=== PATIENT | male | born 1980 ===

== ENCOUNTER 2020-01-15 10:25 | Inpatient (IN) | payer SELFPAY ==
[2020-01-15] VITALS (12 sets, daily range): BP systolic 104–130; BP diastolic 79–90
[~2020-01-15] VITALS: Ht 167 cm; Wt 67.8 kg
[2020-01-15 10:57] LABS: BASOPHILS % (AUTO) 0 % (0-10); EOSINOPHILS % (AUTO) 0 % (0-10); HEMATOCRIT 41 % (40-54); HEMOGLOBIN 14.2 G/DL (13.3-17.7); LYMPHOCYTES # (AUTO) 0.8 X 10^3 (1.0-4.0); LYMPHOCYTES % (AUTO) 8 % (12-44); MEAN CORPUSCULAR HEMOGLOBIN 32 PG (25-34); MEAN CORPUSCULAR HGB CONC 35 G/DL (32-36); MEAN CORPUSCULAR VOLUME 91 FL (80-99); MEAN PLATELET VOLUME 9.3 FL (7.4-10.4); MONOCYTES # (AUTO) 0.4 X 10^3 (0.0-1.0); MONOCYTES % (AUTO) 4 % (0-12); NEUTROPHILS % (AUTO) 89 % (42-75); PLATELET COUNT 350 10^3/uL (130-400); RED CELL DISTRIBUTION WIDTH 12.7 % (10.0-14.5); WHITE BLOOD COUNT 10.1 10^3/uL (4.3-11.0)
[2020-01-15 11:05] LABS: ALBUMIN 3.4 GM/DL (3.2-4.5)
[2020-01-15 11:06] LABS: CHLORIDE 94 MMOL/L (98-107); POTASSIUM 3.8 MMOL/L (3.6-5.0); SODIUM 129 MMOL/L (135-145)
[2020-01-15 11:07] LABS: CALCIUM 8.4 MG/DL (8.5-10.1)
[2020-01-15 11:08] LABS: GLUCOSE 119 MG/DL (70-105); TOTAL PROTEIN 7.1 GM/DL (6.4-8.2)
[2020-01-15 11:09] LABS: CARBON DIOXIDE 22 MMOL/L (21-32)
[2020-01-15 11:10] LABS: BILIRUBIN,TOTAL 0.8 MG/DL (0.1-1.0)
[2020-01-15 11:11] LABS: ALKALINE PHOSPHATASE 76 U/L (40-136)
[2020-01-15 11:12] LABS: CREATININE SERUM 0.88 MG/DL (0.60-1.30); GFR ESTIMATED > 60
[2020-01-15 11:13] LABS: BUN/CREATININE RATIO 14
[2020-01-15 11:15] LABS: ALANINE AMINOTRANSFERASE 43 U/L (0-55)
[2020-01-15] MEDS ORDERED: ACETAMINOPHEN 500 MG TAB (TYLENOL) PO ONE (11:15)
--- NOTE | 2020-01-15 11:15 | ED Cough/URI ---
General Chief Complaint: Respiratory Problems Stated Complaint: SOA Source: patient Exam Limitations: no limitations History of Present Illness Date Seen by Provider: Jan 15, 2020 Time Seen by Provider: 11:12 Initial Comments this non-Greenlandic speaking male presents to ER byEMS from [facility] in [place]. He reports a dry cough fever and shortness of breath getting progressively worse. Symptoms present for about 10 days. He lives in [facility], he has not been around any known ill contacts. He has been unemployed for 6 months. He does not smoke or have any pre-existing lung disease. Oxygen saturation for EMS was low 80% range on arrival.he received Solu-Medrol 125 mg IV from [facility] SinCola and a pro-air inhaler prior to being transported here by EMS Timing/Duration: getting worse Severity/Quality: moderate Associated Symptoms: cough, fever/chills, shortness of breath Allergies and Home Medications Allergies Coded Allergies: No Known Drug Allergies (Unverified , 01/15/20) Home Medications No Active Prescriptions or Reported Meds Patient Home Medication List Home Medication List Reviewed: Yes Review of Systems Review of Systems Constitutional: see HPI, fever EENTM: see HPI Respiratory: see HPI, cough, short of breath Cardiovascular: no symptoms reported Genitourinary: no symptoms reported Musculoskeletal: no symptoms reported Skin: no symptoms reported Psychiatric/Neurological: No Symptoms Reported Hematologic/Lymphatic: No Symptoms Reported Immunological/Allergic: no symptoms reported Physical Exam Vital Signs - First Documented 01/15/20 01/15/20 10:25 11:37 Temp 38.7 Pulse 112 Resp 41 B/P (MAP) 130/89 (103) Pulse Ox 93 O2 Delivery Non Rebreather O2 Flow Rate 15.00 Capillary Refill : Height: '" Weight: lbs. oz. kg; BMI Method: General Appearance: WD/WN, no apparent distress Eyes: Bilateral Eye Normal Inspection, Bilateral Eye PERRL, Bilateral Eye EOMI HEENT: PERRL/EOMI, normal ENT inspection Neck: non-tender, full range of motion Respiratory: normal breath sounds (lungs are clear but respiratory rate is 35- 40. Oxygen is 93% on a nonrebreather. Goes down to 81% on 4 L nasal cannula), no respiratory distress Cardiovascular: no murmur, tachycardia (130s) Gastrointestinal: normal bowel sounds, non tender, soft Extremities: normal range of motion, non-tender Neurologic/Psychiatric: alert, normal mood/affect, oriented x 3 Skin: normal color, warm/dry Progress/Results/Core Measures Suspected Sepsis SIRS Temperature: Pulse: Respiratory Rate: Laboratory Tests 01/15/20 10:35: White Blood Count 10.1 Blood Pressure / Mean: Laboratory Tests 01/15/20 10:35: Creatinine 0.88, Platelet Count 350, Total Bilirubin 0.8 Results/Orders Lab Results Laboratory Tests Test 01/15/20 10:35 01/15/20 10:45 01/15/20 10:46 Range/Units White Blood Count 10.1 4.3-11.0 10^3/uL Red Blood Count 4.47 4.35-5.85 10^6/uL Hemoglobin 14.2 13.3-17.7 G/DL Hematocrit 41 40-54 % Mean Corpuscular Volume 91 80-99 FL Mean Corpuscular Hemoglobin 32 25-34 PG Mean Corpuscular Hemoglobin Concent 35 32-36 G/DL Red Cell Distribution Width 12.7 10.0-14.5 % Platelet Count 350 130-400 10^3/uL Mean Platelet Volume 9.3 7.4-10.4 FL Neutrophils (%) (Auto) 89 H 42-75 % Lymphocytes (%) (Auto) 8 L 12-44 % Monocytes (%) (Auto) 4 0-12 % Eosinophils (%) (Auto) 0 0-10 % Basophils (%) (Auto) 0 0-10 % Neutrophils # (Auto) 9.0 H 1.8-7.8 X 10^3 Lymphocytes # (Auto) 0.8 L 1.0-4.0 X 10^3 Monocytes # (Auto) 0.4 0.0-1.0 X 10^3 Eosinophils # (Auto) 0.0 0.0-0.3 10^3/uL Basophils # (Auto) 0.0 0.0-0.1 10^3/uL Neutrophils % (Manual) 89 % Lymphocytes % (Manual) 5 % Monocytes % (Manual) 4 % Band Neutrophils 2 % Blood Morphology Comment NORMAL D-Dimer 1.10 H 0.00-0.49 UG/ML Sodium Level 129 L 135-145 MMOL/L Potassium Level 3.8 3.6-5.0 MMOL/L Chloride Level 94 L 98-107 MMOL/L Carbon Dioxide Level 22 21-32 MMOL/L Anion Gap 13 5-14 MMOL/L Blood Urea Nitrogen 12 7-18 MG/DL Creatinine 0.88 0.60-1.30 MG/DL Estimat Glomerular Filtration Rate > 60 BUN/Creatinine Ratio 14 Glucose Level 119 H 70-105 MG/DL Calcium Level 8.4 L 8.5-10.1 MG/DL Corrected Calcium 8.9 8.5-10.1 MG/DL Total Bilirubin 0.8 0.1-1.0 MG/DL Aspartate Amino Transf (AST/SGOT) 52 H 5-34 U/L Alanine Aminotransferase (ALT/SGPT) 43 0-55 U/L Alkaline Phosphatase 76 40-136 U/L C-Reactive Protein High Sensitivity 24.52 H 0.00-0.50 MG/DL B-Type Natriuretic Peptide 12.6 <100.0 PG/ML Total Protein 7.1 6.4-8.2 GM/DL Albumin 3.4 3.2-4.5 GM/DL Lactate Dehydrogenase 525 H 125-220 U/L Procalcitonin 0.61 H <0.10 NG/ML My Orders Orders - LOBO QUINONEZ APRN Cbc With Automated Diff (01/15/20 10:48) Comprehensive Metabolic Panel (01/15/20 10:48) BNP (01/15/20 10:48) Hs C Reactive Protein (01/15/20 10:48) Fibrin Degradation Products (01/15/20 10:48) Ekg Tracing (01/15/20 10:48) O2 (01/15/20 10:48) Ed Iv/Invasive Line Start (01/15/20 10:48) Monitor-Rhythm Ecg Trace Only (01/15/20 10:48) Chest 1 View, Ap/Pa Only (01/15/20 10:48) Coronavirus Sars-Cov-2 So 2018 (01/15/20 10:48) Manual Differential (01/15/20 10:35) Acetaminophen Tablet (Tylenol Tablet) (01/15/20 11:15) LDH (01/15/20 11:16) Procalcitonin (Pct) (01/15/20 11:16) Ct Angio Chest W (01/15/20 11:21) Enoxaparin Injection (Lovenox Injection) (01/15/20 11:30) Iohexol Injection (Omnipaque 350 Mg/Ml 1 (01/15/20 11:30) Received Contrast (Hold Metformin- Contr (01/15/20 11:30) Ns (Ivpb) (Sodium Chloride 0.9% Ivpb Bag (01/15/20 11:30) Medications Given in ED Current Medications Medications Dose Ordered Sig/Albina Route Start Time Stop Time Status Last Admin Dose Admin Acetaminophen 1,000 mg ONCE ONCE PO 01/15/20 11:15 01/15/20 11:16 DC 01/15/20 11:30 1,000 MG Enoxaparin Sodium 40 mg ONCE ONCE SC 01/15/20 11:30 01/15/20 11:31 DC 01/15/20 11:43 40 MG Iohexol 100 ml ONCE ONCE IV 01/15/20 11:30 01/15/20 11:31 DC 01/15/20 11:58 70 ML Sodium Chloride 100 ml ONCE ONCE IV 01/15/20 11:30 01/15/20 11:31 DC 01/15/20 11:58 80 ML Vital Signs/I&O 01/15/20 01/15/20 10:25 11:37 Temp 38.7 Pulse 112 102 Resp 41 33 B/P (MAP) 130/89 (103) Pulse Ox 93 O2 Delivery Non Rebreather O2 Flow Rate 15.00 40.00 Capillary Refill : Departure Communication (Admissions) Time/Spoke to Admitting Phy: 12:17 Family Conversation NAME: DARRYL SORIANO REC#: [id number] PT STATUS: REG ER : 1980 PHYSICIAN: LOBO QUINONEZ [employer]ER [employer]SEMBLER ADMIT DATE: 01/15/20/ER Draft Date of Exam:01/15/20 CT ANGIO CHEST W PROCEDURE: CT angiography of the chest with contrast. TECHNIQUE: Multiple contiguous axial images were obtained through the chest after uneventful bolus administration of intravenous contrast. 3D reconstructed CTA MIP acquisitions were also performed. Auto Exposure Controls were utilized during the CT exam to meet ALARA standards for radiation dose reduction. INDICATION: Positive d-dimer and shortness of air. No prior studies are available for comparison. FINDINGS: Evaluation of pulmonary arterial system is without evidence of thromboembolism. No filling defects are seen within central, lobar or segmental branches. Thoracic aorta is normal caliber. No dissection is identified. There is no pericardial fluid. There is trace bilateral pleural fluid. Parenchymal evaluation does show some groundglass airspace infiltrates throughout bilateral upper lobes as well as bilateral lower lobes posteriorly. There are some areas of more consolidated lung in the lower lobes bilaterally. Upper abdomen is unremarkable. IMPRESSION: 1. No evidence of pulmonary embolism or thoracic aortic dissection. 2. Bilateral pulmonary infiltrates suggestive of pneumonia. Covid would be in the differential. Dictated on workstation # [id number] Dict: 01/15/20 1200 Trans: 01/15/20 1208 [id number] Interpreted by: ABILIO GANDARA MD Electronically signed by: given his tachypnea even on a nonrebreather we will try BiPAP 1216-I spoke with dr trejo and dr bradshaw. WIll admit to icu. withhold abx at this time given normal white count. currently on bipap at 15/5 40% fio2 which h as reduced resp rate from 40-->25 and hes tolerating it well, feels like its helping. will admit. Impression Primary Impression: Acute hypoxemic respiratory failure Disposition: ADMITTED INPATIENT Condition: Stable Admissions Decision to Admit Reason: Admit from ER (General) Decision to Admit/Date: Jan 15, 2020 Time/Decision to Admit Time: 11:15 Departure-Patient Inst. Scripts No Active Prescriptions or Reported LOBO Wallace APRN Jan 15, 2020 11:15
[2020-01-15] MEDS ORDERED: ENOXAPARIN 40 MG/0.4 ML (LOVENOX) SYR SC ONE (11:30)
[2020-01-15] MEDS ORDERED: IOHEXOL 350 MG/ML 100 ML (OMNIPAQUE 350) VIAL IV ONE (11:30)
[2020-01-15] MEDS ORDERED: HOLD METFORMIN - RECEIVED CONTRAST 20 ML VIAL IV SCH (11:30)
[2020-01-15] MEDS ORDERED: NS 100 ML (IVPB) BAG IV ONE (11:30)
--- NOTE | 2020-01-15 11:30 | NUR ---
PT ON BIPAP BY RT.
[2020-01-15 11:33] LABS: BAND NEUTROPHILS 2 %; LYMPHOCYTES % (MANUAL) 5 %; MONOCYTES % (MANUAL) 4 %; NEUTROPHILS % (MANUAL) 89 %; RBC MORPH NORMAL
--- NOTE | 2020-01-15 11:40 | NUR ---
SECOND BLOOD CULTURE DONE
--- NOTE | 2020-01-15 12:08 | Diagnostic Imaging Report ---
PROCEDURE: CT angiography of the chest with contrast. TECHNIQUE: Multiple contiguous axial images were obtained through the chest after uneventful bolus administration of intravenous contrast. 3D reconstructed CTA MIP acquisitions were also performed. Auto Exposure Controls were utilized during the CT exam to meet ALARA standards for radiation dose reduction. INDICATION: Positive d-dimer and shortness of air. No prior studies are available for comparison. FINDINGS: Evaluation of pulmonary arterial system is without evidence of thromboembolism. No filling defects are seen within central, lobar or segmental branches. Thoracic aorta is normal caliber. No dissection is identified. There is no pericardial fluid. There is trace bilateral pleural fluid. Parenchymal evaluation does show some groundglass airspace infiltrates throughout bilateral upper lobes as well as bilateral lower lobes posteriorly. There are some areas of more consolidated lung in the lower lobes bilaterally. Upper abdomen is unremarkable. IMPRESSION: 1. No evidence of pulmonary embolism or thoracic aortic dissection. 2. Bilateral pulmonary infiltrates suggestive of pneumonia. Covid would be in the differential. Dictated by: Dictated on workstation # [id number]
[2020-01-15] MEDS ORDERED: LACTATED RINGERS 1,000 ML IV ONE (12:36)
[2020-01-15] MEDS ORDERED: cefTRIAXone FOR IV USE 1,000 MG in WATER (STERILE) FOR INJECTION 10 ML IV ONE (13:45)
[2020-01-15] MEDS ORDERED: AZITHROMYCIN INJECTION 500 MG in NS (IVPB) 250 ML IV ONE (13:45)
--- NOTE | 2020-01-15 13:54 | Pulmonary Consultation ---
History of Present Illness History of Present Illness Date Seen by Provider: Jan 15, 2020 Time Seen by Provider: 13:49 Date of Admission History of Present Illness 39yo non-anguillan speaking male presented to ED via EMS from [facility] in [place] secondary to worsening dry cough fever and shortness of breath getting. CT while in the ED shows extensive bilateral infiltrates. Pt was found to be in acute respiratory failure upon admission. Pt was transferred to ICU for close monitoring. Allergies and Home Medications Allergies Coded Allergies: No Known Drug Allergies (Unverified , 01/15/20) Home Medications No Active Prescriptions or Reported Meds Past Jiootbj-Atdqgb-Qfncfq Hx Patient Social History Alcohol Use: Denies Use Recreational Drug Use: No Smoking Status: Never a Smoker Recent Foreign Travel: No Contact w/Someone Who Travel: No Recent Infectious Disease Expo: No Recent Hopitalizations: No Physical Abuse: No Sexual Abuse: No Seasonal Allergies Seasonal Allergies: No Past Medical History Surgeries: No Respiratory: No Cardiac: No Neurological: No Genitourinary: No Gastrointestinal: No Musculoskeletal: No Endocrine: No HEENT: No Cancer: No Psychosocial: No Integumentary: No Review of Systems Time Seen by Provider: 13:51 Constitutional: Fever, Chills, Sweats, Weakness, Malaise, Other Eyes: No: Pain, Vision change, Conjunctivae inflammation, Eyelid inflammation, Other, Redness ENT: Nose congestion; No: Ear pain, Ear discharge, Nose pain, Nose discharge, Mouth pain, Mouth swelling, Throat pain, Throat swelling, Other Respiratory: Cough, Dry, Shortness of breath, SOB with excertion, Wheezing Cardiovascular: Palpitations, Paroxysmal Noc. Dyspnea, Lt Headedness Gastrointestinal: No: Nausea, Vomiting, Abdominal Pain, Diarrhea, Constipation, Melena, Hematochezia, Other Sepsis Event Evaluation Height, Weight, BMI Height: '" Weight: lbs. oz. kg; 25.00 BMI Method: Exam Exam Vital Signs Date Time Temp Pulse Resp B/P (MAP) Pulse Ox O2 Delivery O2 Flow Rate FiO2 01/15/20 12:50 36.5 97 31 96 NIV Bilevel 40.00 01/15/20 11:37 102 33 93 40.00 01/15/20 10:25 38.7 112 41 130/89 (103) Non Rebreather 15.00 Height & Weight Height: '" Weight: lbs. oz. kg; 25.00 BMI Method: General Appearance: Moderate Distress HEENT: PERRL/EOMI, Pharynx Normal Neck: Full Range of Motion, Non Tender, Supple Respiratory: Chest Non Tender, Crackles, Decreased Breath Sounds, Respiratory Distress Cardiovascular: Regular Rate, Rhythm, No Edema Capillary Refill: Less Than 3 Seconds Gastrointestinal: normal bowel sounds, non tender, soft Extremity: Normal Capillary Refill Neurologic/Psychiatric: Alert, Oriented x3 Skin: Normal Color, Warm/Dry Lymphatic: No Adenopathy Results Lab Laboratory Tests 01/15/20 10:35 Assessment/Plan Assessment/Plan Acute respiratory failure with bilateral extensive infiltrates -R/o COVID -BiPAP PRN -Awake proning -Start Rocephin and azithromycin -Start decadron Hyponatremia -Monitor DVT/GI PPX SHAQUILLE WILSON DO Jan 15, 2020 13:54
--- NOTE | 2020-01-15 14:13 | Pulmonary Consultation ---
History of Present Illness History of Present Illness Date Seen by Provider: Jan 15, 2020 Time Seen by Provider: 14:12 Date of Admission History of Present Illness 39yo non-monegasque speaking male presented to ED via EMS from [facility] in [place] secondary to worsening dry cough fever and shortness of breath getting. CT while in the ED shows extensive bilateral infiltrates. Pt was found to be in acute respiratory failure upon admission. Pt was transferred to ICU for close monitoring. Allergies and Home Medications Allergies Coded Allergies: No Known Drug Allergies (Unverified , 01/15/20) Home Medications No Active Prescriptions or Reported Meds Past Kcqbspc-Qxwijf-Kfcwkr Hx Patient Social History Alcohol Use: Denies Use Recreational Drug Use: No Smoking Status: Never a Smoker Recent Foreign Travel: No Contact w/Someone Who Travel: No Recent Infectious Disease Expo: No Recent Hopitalizations: No Physical Abuse: No Sexual Abuse: No Seasonal Allergies Seasonal Allergies: No Past Medical History Surgeries: No Respiratory: No Cardiac: No Neurological: No Genitourinary: No Gastrointestinal: No Musculoskeletal: No Endocrine: No HEENT: No Cancer: No Psychosocial: No Integumentary: No Review of Systems Time Seen by Provider: 14:13 Constitutional: Fever, Chills, Sweats, Weakness, Malaise, Other Eyes: No: Pain, Vision change, Conjunctivae inflammation, Eyelid inflammation, Other, Redness ENT: No: Ear pain, Ear discharge, Nose pain, Nose discharge, Nose congestion, Mouth pain, Mouth swelling, Throat pain, Throat swelling, Other Respiratory: Cough, Dry, Shortness of breath, SOB with excertion Cardiovascular: Palpitations, Paroxysmal Noc. Dyspnea Sepsis Event Evaluation Height, Weight, BMI Height: '" Weight: lbs. oz. kg; 25.00 BMI Method: Exam Exam Vital Signs Date Time Temp Pulse Resp B/P (MAP) Pulse Ox O2 Delivery O2 Flow Rate FiO2 01/15/20 14:00 88 38 110/86 (94) 92 NIV Bilevel 40.00 01/15/20 13:00 97 39 124/79 (94) 95 NIV Bilevel 40.00 01/15/20 12:50 36.5 97 31 96 NIV Bilevel 40.00 01/15/20 12:24 105 18 109/78 95 NIV Bilevel 01/15/20 11:37 102 33 93 40.00 01/15/20 10:25 38.7 112 41 130/89 (103) Non Rebreather 15.00 01/15/20 10:25 90 Non Rebreather 15.00 Height & Weight Height: '" Weight: lbs. oz. kg; 25.00 BMI Method: General Appearance: Moderate Distress HEENT: PERRL/EOMI, Pharynx Normal Neck: Full Range of Motion, Non Tender, Supple Respiratory: Chest Non Tender, Crackles, Decreased Breath Sounds, Respiratory Distress Cardiovascular: Regular Rate, Rhythm, No Edema Capillary Refill: Less Than 3 Seconds Gastrointestinal: normal bowel sounds, non tender, soft Extremity: Normal Capillary Refill Neurologic/Psychiatric: Alert, Oriented x3 Skin: Normal Color, Warm/Dry Lymphatic: No Adenopathy Results Lab Laboratory Tests 01/15/20 10:35 Assessment/Plan Assessment/Plan Acute respiratory failure with bilateral extensive infiltrates -R/o COVID -BiPAP PRN -Awake proning -Start Rocephin and azithromycin -Start decadron Hyponatremia -Monitor DVT/GI PPX SHAQUILLE WILSON DO Jan 15, 2020 14:13
[2020-01-15 14:16] LABS: AMPHETAMINE SCREEN, URINE NEGATIVE (NEGATIVE); BARBITURATE SCREEN URINE NEGATIVE (NEGATIVE); BENZODIAZEPINES SCREEN URINE NEGATIVE (NEGATIVE); CANNABINOID SCREEN, URINE NEGATIVE (NEGATIVE); COCAINE SCREEN URINE NEGATIVE (NEGATIVE); METHADONE STAT NEGATIVE (NEGATIVE); METHAMPHETAMINE SCREEN URINE S NEGATIVE (NEGATIVE); OPIATE SCREEN URINE NEGATIVE (NEGATIVE); OXYCODONE STAT NEGATIVE (NEGATIVE); PROPOXYPHENE STAT NEGATIVE (NEGATIVE); TRICYCLIC ANTIDEPRESSANTS SCRE NEGATIVE (NEGATIVE)
--- OUTSIDE RECORDS SUMMARY | 2020-01-15 14:53 | XMS REPORT | Continuity of Care Document ---
Demographics Preferred Language Unknown Marital Status Unknown Mandaeism Affiliation Unknown Race Unknown Ethnic Group Unknown Author Organization Unknown Address Unknown Phone Unavailable Allergies There is no data. Medications There is no data. Problems There is no data. Procedures There is no data. Results Test Result Range Complete blood count (CBC) with automate d white blood cell (WBC) differential - 01/15/20 10:35 Blood leukocytes automated count (number/volume) 10.1 10*3/uL 4.3-11.0 Blood erythrocytes automated count (number/volume) 4.47 10*6/uL 4.35-5.85 Venous blood hemoglobin measurement (mass/volume) 14.2 g/dL 13.3-17.7 Blood hematocrit (volume fraction) 41 % 40-54 Automated erythrocyte mean corpuscular volume 91 [ foz_us] 80-99 Automated erythrocyte mean corpuscular h emoglobin (mass per erythrocyte) 32 pg 25-34 Automated erythrocyte mean corpuscular h emoglobin concentration measurement (mass/volume) 35 g/dL 32-36 Automated erythrocyte distribution width ratio 12. 7 % 10.0- 14.5 Automated blood platelet count (count/volume) 350 10*3/uL 130-400 Automated blood platelet mean volume measurement 9.3 [foz_us] 7.4-10.4 Automated blood neutrophils/100 leukocytes 89 % 42-75 Automated blood lymphocytes/100 leukocytes 8 % 12-44 Blood monocytes/100 leukocytes 4 % 0-12 Automated blood eosinophils/100 leukocytes 0 % 0-10 Automated blood basophils/100 leukocytes 0 % 0-10 Blood neutrophils automated count (number/volume) 9.0 10*3 1.8-7.8 Blood lymphocytes automated count (number/volume) 0.8 10*3 1.0-4.0 Blood monocytes automated count (number/volume) 0. 4 10*3 0.0-1.0 Automated eosinophil count 0.0 10*3/uL 0 .0-0.3 Automated blood basophil count (count/volume) 0.0 10*3/uL 0.0-0.1 Comprehensive metabolic panel - 01/15/20 10:35 Serum or plasma sodium measurement (moles/volume) 129 mmol/L 135-145 Serum or plasma potassium measurement (moles/volume) 3.8 mmol/L 3.6-5.0 Serum or plasma chloride measurement (moles/volume) 94 mmol/L 98-107 Carbon dioxide 22 mmol/L 21-32 Serum or plasma anion gap determination (moles/volume) 13 mmol/L 5-14 Serum or plasma urea nitrogen measurement (mass/volume ) 12 mg/dL 7-18 Serum or plasma creatinine measurement (mass/volume) 0.88 mg/dL 0.60-1.30 Serum or plasma urea nitrogen/creatinine mass ratio 14 NRG Serum or plasma creatinine measurement w ith calculation of estimated glomerular filtration rate > NRG Serum or plasma glucose measurement (mass/volume) 119 mg/dL 70-105 Serum or plasma calcium measurement (mass/volume) 8.4 mg/dL 8.5-10.1 Serum or plasma total bilirubin measurement (mass/volu me) 0.8 mg/dL 0.1-1.0 Serum or plasma alkaline phosphatase bina surement (enzymatic activity/volume) 76 U/L 40-136 Serum or plasma aspartate aminotransfera se measurement (enzymatic activity/volume) 52 U/L 5-34 Serum or plasma alanine aminotransferase measurement (enzymatic activity/volume) 43 U/L 0-55 Serum or plasma protein measurement (mass/volume) 7.1 g/dL 6.4-8.2 Serum or plasma albumin measurement (mass/volume) 3.4 g/dL 3.2-4.5 CALCIUM CORRECTED 8.9 mg/dL 8.5-10.1 Fibrin D-dimer FEU measurement in platel et poor plasma (mass/volume) - 01/15/20 10:35 Fibrin D-dimer FEU measurement in platelet poor plasma (mass/volume) 1.10 ug/mL 0.00-0.49 Serum or plasma C reactive protein measu rement (mass/volume) - 01/15/20 10:35 Serum or plasma C reactive protein measurement (mass/v olume) 24.52 mg/dL 0.00-0.50 Manual absolute plasma cell count - 12/29 10:35 Blood monocytes/100 leukocytes 4 % NRG Manual blood segmented neutrophils/100 leukocytes 89 % NRG Blood band neutrophils/100 leukocytes 2 % NRG Manual blood lymphocytes/100 leukocytes 5 % NRG Blood erythrocyte morphology finding identification NORMAL NRG Serum or plasma lithium measurement (mol es/volume) - 01/15/20 10:35 BNP PT 12.6 pg/mL <100.0 Serum ragweed IgE antibody assay - 01/14 10:45 Serum ragweed IgE antibody assay 525 U/L 125-220 PROCALCITONIN (PCT) - 01/15/20 10:45 PROCALCITONIN (PCT) 0.61 ng/mL <0.10 Urine drug screening test - 01/15/20 10: 57 Urine phencyclidine detection by screening method NEGATIVE NEGATIVE Urine benzodiazepines detection by screening method NEGATIVE NEGATIVE Urine cocaine detection NEGATIVE NEGATI VE Urine amphetamines detection by screening method N EGATIVE NEGATIVE Urine methamphetamine detection by screening method NEGATIVE NEGATIVE Urine cannabinoids detection by screening method N EGATIVE NEGATIVE Urine opiates detection by screening method NEGATI VE NEGATIVE Urine barbiturates detection NEGATIVE N EGATIVE Screening urine tricyclic antidepressants detection NEGATIVE NEGATIVE Urine methadone detection by screening method NEGA TIVE NEGATIVE Urine oxycodone detection NEGATIVE NEGA TIVE Urine propoxyphene detection NEGATIVE N EGATIVE Encounters ACCT No. Visit Date/Time Discharge Status Pt. Type Provider Facility Loc./Unit Complaint [id number] 01/15/2020 11:01:00 Document Registration
[2020-01-15] MEDS ORDERED: RT-ALBUTEROL INHALER HFA (VENTOLIN HFA) 8 GM IH PRN (15:00)
[2020-01-15] MEDS ORDERED: LACTATED RINGERS 1,000 ML IV SCH (15:00)
[2020-01-15] MEDS: ENOXAPARIN 40 MG/0.4 ML (LOVENOX) SYR SC SCH (15:24)
[2020-01-15] MEDS: LACTATED RINGERS 1,000 ML IV SCH (15:24)
[2020-01-15 17:36] LABS: BILIRUBIN,URINE NEGATIVE (NEGATIVE); CLARITY,URINE CLEAR; COLOR,URINE YELLOW; GLUCOSE, URINE (UA) NEGATIVE (NEGATIVE); KETONES,URINE NEGATIVE (NEGATIVE); LEUKOCYTE ESTERASE ,URINE NEGATIVE (NEGATIVE); NITRITE,URINE NEGATIVE (NEGATIVE); PH,URINE 5.5 (5-9); PROTEIN,URINE NEGATIVE (NEGATIVE)
[2020-01-15 17:44] LABS: BACTERIA,URINE NEGATIVE /HPF; WBC,URINE RARE /HPF
[2020-01-15 18:00] LABS: ABG BASE EXCESS 1.7 MMOL/L (-2.5-2.5); ABG OXYGEN SATURATION 94 % (94-100); ABG PCO2 34 MMHG (35-45); ABG PH 7.48 (7.37-7.43); ABG PO2 69 MMHG (79-93); ABG TCO2 26.3 MMOL/L (21.0-31.0)
[2020-01-15 18:02] LABS: ALLENS TEST YES-POS; INSPIRED O2 40%; PATIENT TEMP 35.6; VENTILATOR NO
[2020-01-15] MEDS: RT-ALBUTEROL INHALER HFA (VENTOLIN HFA) 8 GM IH SCH ×2 (18:40→21:46)
--- NOTE | 2020-01-15 20:39 | NUR ---
UPDATED E-ICU ON PT STATUS, PT RR UPPER 30'S-MID 40'S. PT STATED HE FEELS HE IS BREATHING BETTER THAN WHEN HE FIRST GOT HERE.. PT O2 SATS GO TO MID TO UPPER 80'S WHEN PT MOVES. NO NEW ORDERS. WILL CONTINUE TO MONITOR.
[2020-01-16] VITALS (24 sets, daily range): BP systolic 96–120; BP diastolic 69–87
[2020-01-16] MEDS: LACTATED RINGERS 1,000 ML IV SCH ×3 (00:40→21:12)
[2020-01-16] MEDS: RT-ALBUTEROL INHALER HFA (VENTOLIN HFA) 8 GM IH SCH ×6 (02:05→21:37)
[2020-01-16 04:25] LABS: ABG OXYGEN SATURATION 94 % (94-100); ABG PCO2 36 MMHG (35-45); ABG PH 7.48 (7.37-7.43); ABG PO2 69 MMHG (79-93); ABG TCO2 27.6 MMOL/L (21.0-31.0)
[2020-01-16 04:26] LABS: ALLENS TEST POSITIVE; INSPIRED O2 50; PATIENT TEMP 36.5; VENTILATOR NO
[2020-01-16 04:26] LABS: BASOPHILS % (AUTO) 0 % (0-10); EOSINOPHILS % (AUTO) 0 % (0-10); HEMATOCRIT 42 % (40-54); HEMOGLOBIN 14.6 G/DL (13.3-17.7); LYMPHOCYTES # (AUTO) 0.5 X 10^3 (1.0-4.0); LYMPHOCYTES % (AUTO) 6 % (12-44); MEAN CORPUSCULAR HEMOGLOBIN 32 PG (25-34); MEAN CORPUSCULAR HGB CONC 35 G/DL (32-36); MEAN CORPUSCULAR VOLUME 92 FL (80-99); MEAN PLATELET VOLUME 9.3 FL (7.4-10.4); MONOCYTES # (AUTO) 0.4 X 10^3 (0.0-1.0); MONOCYTES % (AUTO) 4 % (0-12); NEUTROPHILS # (AUTO) 7.9 X 10^3 (1.8-7.8); NEUTROPHILS % (AUTO) 90 % (42-75); PLATELET COUNT 394 10^3/uL (130-400); WHITE BLOOD COUNT 8.8 10^3/uL (4.3-11.0)
[2020-01-16 04:41] LABS: CHLORIDE 103 MMOL/L (98-107); SODIUM 139 MMOL/L (135-145)
[2020-01-16 04:42] LABS: CALCIUM 8.9 MG/DL (8.5-10.1); GLUCOSE 142 MG/DL (70-105)
[2020-01-16 04:44] LABS: CARBON DIOXIDE 23 MMOL/L (21-32)
[2020-01-16 04:46] LABS: CREATININE SERUM 0.73 MG/DL (0.60-1.30); GFR ESTIMATED > 60; PHOSPHORUS 3.8 MG/DL (2.3-4.7)
--- NOTE | 2020-01-16 04:46 | Pulmonary Progress Note ---
Subjective Time Seen by a Provider: 04:41 Subjective/Events-last exam Currently on BiPAP Sepsis Event Evaluation Height, Weight, BMI Height: '" Weight: lbs. oz. kg; 25.00 BMI Method: Exam Exam Vital Signs Date Time Temp Pulse Resp B/P (MAP) Pulse Ox O2 Delivery O2 Flow Rate FiO2 01/16/20 04:00 NIV Bilevel 50.00 01/16/20 04:00 36.5 01/16/20 02:05 80 38 92 50.00 01/16/20 02:00 70 33 120/69 (86) 92 NIV Bilevel 50.00 01/16/20 01:00 82 23 114/87 (96) 94 NIV Bilevel 50.00 01/16/20 01:00 80 01/16/20 00:42 36.8 01/16/20 00:00 NIV Bilevel 50.00 01/16/20 00:00 80 36 113/86 (95) 93 NIV Bilevel 50.00 01/15/20 23:00 64 20 106/81 (89) 94 NIV Bilevel 50.00 01/15/20 22:00 77 24 110/86 (94) 94 NIV Bilevel 50.00 01/15/20 21:46 80 38 92 50.00 01/15/20 21:00 81 22 113/87 (96) 91 NIV Bilevel 50.00 01/15/20 20:47 NIV Bilevel 50.00 01/15/20 20:00 99 33 119/90 (100) 92 NIV Bilevel 40.00 01/15/20 20:00 NIV Bilevel 40.00 01/15/20 19:49 36.7 01/15/20 19:00 100 01/15/20 19:00 90 32 114/85 (95) 91 NIV Bilevel 40.00 01/15/20 18:40 89 32 92 40.00 01/15/20 18:00 93 27 118/87 (97) 92 NIV Bilevel 40.00 01/15/20 17:53 35.6 01/15/20 17:00 90 36 113/82 (92) 92 NIV Bilevel 40.00 01/15/20 16:01 38.7 112 96 01/15/20 16:00 90 36 104/81 (89) 95 NIV Bilevel 40.00 01/15/20 15:47 85 28 94 40.00 01/15/20 15:37 95 NIV Bilevel 40.00 01/15/20 15:00 90 37 122/90 (101) 95 NIV Bilevel 40.00 01/15/20 14:56 92 NIV Bilevel 40.00 01/15/20 14:00 88 38 110/86 (94) 92 NIV Bilevel 40.00 01/15/20 13:00 97 39 124/79 (94) 95 NIV Bilevel 40.00 01/15/20 12:50 36.5 97 31 96 NIV Bilevel 40.00 01/15/20 12:24 105 18 109/78 95 NIV Bilevel 01/15/20 11:37 102 33 93 40.00 01/15/20 10:25 38.7 112 41 130/89 (103) Non Rebreather 15.00 01/15/20 10:25 90 Non Rebreather 15.00 I & O 01/16/20 07:00 Intake Total 1400 ml Output Total 2300 ml Balance -900 ml Height & Weight Height: '" Weight: lbs. oz. kg; 25.00 BMI Method: General Appearance: Moderate Distress HEENT: PERRL/EOMI, Pharynx Normal Neck: Full Range of Motion, Non Tender, Supple Respiratory: Chest Non Tender, Crackles, Decreased Breath Sounds, Respiratory Distress Cardiovascular: Regular Rate, Rhythm, No Edema Capillary Refill: Less Than 3 Seconds Gastrointestinal: normal bowel sounds, non tender, soft Extremity: Normal Capillary Refill Neurologic/Psychiatric: Alert, Oriented x3 Skin: Normal Color, Warm/Dry Lymphatic: No Adenopathy Results Lab Laboratory Tests 01/15/20 10:35 01/16/20 04:00 Assessment/Plan Assessment/Plan Acute respiratory failure with bilateral extensive infiltrates COVID PNA -Start Remdesivir -BiPAP PRN -Awake proning --Continue decadron -Continue Rocephin and azithromycin DVT/GI PPX SHAQUILLE WILSON DO Jan 16, 2020 04:46
[2020-01-16 04:47] LABS: BUN/CREATININE RATIO 21
[2020-01-16 04:49] LABS: MAGNESIUM 2.6 MG/DL (1.6-2.4)
[2020-01-16] MEDS ORDERED: REMDESIVIR INJ (NON-FORMULARY) 200 MG in NS (IVPB) 210 ML IV NR (08:00)
[2020-01-16] MEDS: PANTOPRAZOLE 40 MG (PROTONIX) VIAL IV SCH (09:28)
[2020-01-16] MEDS: AZITHROMYCIN INJECTION 250 MG in NS (IVPB) 250 ML IV SCH (09:28)
[2020-01-16] MEDS: ENOXAPARIN 40 MG/0.4 ML (LOVENOX) SYR SC SCH (14:29)
[2020-01-16] MEDS: cefTRIAXone FOR IV USE 1,000 MG in WATER (STERILE) FOR INJECTION 10 ML IV SCH (14:30)
[2020-01-16 17:26] LABS: RSV PCR TEST Not Detected (Not Detected)
[2020-01-17] VITALS (27 sets, daily range): BP systolic 101–123; BP diastolic 66–97
[2020-01-17] MEDS: RT-ALBUTEROL INHALER HFA (VENTOLIN HFA) 8 GM IH SCH ×6 (02:51→21:46)
[2020-01-17 03:32] LABS: ABG OXYGEN SATURATION 58 % (94-100); ABG PCO2 46 MMHG (35-45); ABG TCO2 29.9 MMOL/L (21.0-31.0); BASOPHILS % (AUTO) 0 % (0-10); EOSINOPHILS % (AUTO) 0 % (0-10); HEMATOCRIT 42 % (40-54); HEMOGLOBIN 14.1 G/DL (13.3-17.7); LYMPHOCYTES % (AUTO) 10 % (12-44); MEAN CORPUSCULAR HEMOGLOBIN 32 PG (25-34); MEAN CORPUSCULAR HGB CONC 34 G/DL (32-36); MEAN CORPUSCULAR VOLUME 94 FL (80-99); MEAN PLATELET VOLUME 9.3 FL (7.4-10.4); MONOCYTES # (AUTO) 0.5 X 10^3 (0.0-1.0); MONOCYTES % (AUTO) 5 % (0-12); NEUTROPHILS % (AUTO) 85 % (42-75); PLATELET COUNT 465 10^3/uL (130-400); RED CELL DISTRIBUTION WIDTH 13.1 % (10.0-14.5); WHITE BLOOD COUNT 9.5 10^3/uL (4.3-11.0)
[2020-01-17 03:39] LABS: ABG PO2 37 MMHG (79-93)
[2020-01-17 03:41] LABS: ALLENS TEST POSITIVE; INSPIRED O2 45; PATIENT TEMP 36.8; VENTILATOR NO
[2020-01-17 03:54] LABS: CHLORIDE 107 MMOL/L (98-107); POTASSIUM 4.5 MMOL/L (3.6-5.0); SODIUM 140 MMOL/L (135-145)
[2020-01-17 03:55] LABS: CALCIUM 8.3 MG/DL (8.5-10.1)
[2020-01-17 03:56] LABS: GLUCOSE 97 MG/DL (70-105)
[2020-01-17 03:57] LABS: CARBON DIOXIDE 20 MMOL/L (21-32)
[2020-01-17 04:00] LABS: CREATININE SERUM 0.71 MG/DL (0.60-1.30); GFR ESTIMATED > 60
[2020-01-17 04:01] LABS: BUN/CREATININE RATIO 25
[2020-01-17 04:02] LABS: MAGNESIUM 2.5 MG/DL (1.6-2.4)
[2020-01-17 04:17] LABS: BAND NEUTROPHILS 6 %; LYMPHOCYTES % (MANUAL) 11 %; MONOCYTES % (MANUAL) 5 %; NEUTROPHILS % (MANUAL) 77 %
[2020-01-17 04:18] LABS: PROMYELOCYTES % 1 %; RBC MORPH NORMAL
--- NOTE | 2020-01-17 04:59 | Pulmonary Progress Note ---
Subjective Time Seen by a Provider: 04:54 Subjective/Events-last exam pt currently on BiPAP Sepsis Event Evaluation Height, Weight, BMI Height: '" Weight: lbs. oz. kg; 25.00 BMI Method: Exam Exam Vital Signs Date Time Temp Pulse Resp B/P (MAP) Pulse Ox O2 Delivery O2 Flow Rate FiO2 01/17/20 04:09 93 NIV Bilevel 45.00 01/17/20 04:00 72 18 121/86 (98) 99 NIV Bilevel 45.00 01/17/20 03:00 81 37 101/75 (84) 95 NIV Bilevel 45.00 01/17/20 02:51 80 33 93 45.00 01/17/20 02:00 76 37 111/80 (90) 97 NIV Bilevel 45.00 01/17/20 01:00 55 29 101/79 (86) 94 NIV Bilevel 45.00 01/17/20 01:00 60 01/17/20 00:18 93 NIV Bilevel 45.00 01/17/20 00:17 36.6 01/17/20 00:00 60 28 106/76 (86) 94 NIV Bilevel 45.00 01/16/20 23:00 96 15 110/80 (90) 94 NIV Bilevel 45.00 01/16/20 22:00 87 31 116/78 (91) 93 NIV Bilevel 45.00 01/16/20 21:37 80 30 93 45.00 01/16/20 21:21 NIV Bilevel 45.00 01/16/20 21:11 36.9 01/16/20 21:00 75 36 116/79 (91) 94 NIV Bilevel 50.00 01/16/20 20:00 97 NIV Bilevel 45.00 01/16/20 20:00 60 31 95 NIV Bilevel 50.00 01/16/20 19:00 80 01/16/20 19:00 73 29 98 NIV Bilevel 50.00 01/16/20 18:52 77 30 99 45.00 01/16/20 18:00 82 39 95 NIV Bilevel 50.00 01/16/20 17:00 71 32 108/76 (87) 89 NIV Bilevel 50.00 01/16/20 16:59 36.8 01/16/20 16:59 97 NIV Bilevel 50.00 01/16/20 16:00 54 25 102/81 (88) 96 NIV Bilevel 50.00 01/16/20 15:00 63 48 110/79 (89) 92 NIV Bilevel 50.00 01/16/20 14:21 66 33 93 50.00 01/16/20 14:00 73 29 108/73 (85) 93 NIV Bilevel 50.00 01/16/20 13:08 75 01/16/20 13:00 77 37 102/76 (85) 95 NIV Bilevel 50.00 01/16/20 12:00 67 33 104/77 (86) 95 NIV Bilevel 50.00 01/16/20 12:00 95 NIV Bilevel 50.00 01/16/20 11:31 37.4 01/16/20 11:00 70 34 109/74 (86) 94 NIV Bilevel 50.00 01/16/20 10:17 80 34 94 50.00 01/16/20 10:00 76 35 111/82 (92) 96 NIV Bilevel 50.00 01/16/20 09:37 36.6 01/16/20 09:00 64 31 105/74 (84) 95 NIV Bilevel 50.00 01/16/20 08:00 94 NIV Bilevel 50.00 01/16/20 08:00 65 32 106/76 (86) 92 NIV Bilevel 50.00 01/16/20 07:31 78 40 94 50.00 01/16/20 07:00 62 01/16/20 07:00 64 27 106/77 (87) 96 NIV Bilevel 50.00 01/16/20 06:00 62 34 96/74 (81) 92 NIV Bilevel 50.00 01/16/20 05:00 70 29 112/79 (90) 90 NIV Bilevel 50.00 I & O 01/17/20 07:00 Intake Total 1250 ml Output Total 700 ml Balance 550 ml Height & Weight Height: '" Weight: lbs. oz. kg; 25.00 BMI Method: General Appearance: Moderate Distress HEENT: PERRL/EOMI, Pharynx Normal Neck: Full Range of Motion, Non Tender, Supple Respiratory: Chest Non Tender, Crackles, Decreased Breath Sounds, Respiratory Distress Cardiovascular: Regular Rate, Rhythm, No Edema Capillary Refill: Less Than 3 Seconds Gastrointestinal: normal bowel sounds, non tender, soft Extremity: Normal Capillary Refill Neurologic/Psychiatric: Alert, Oriented x3 Skin: Normal Color, Warm/Dry Lymphatic: No Adenopathy Results Lab Laboratory Tests 01/15/20 10:35 01/16/20 04:00 01/17/20 03:19 Assessment/Plan Assessment/Plan Acute respiratory failure with bilateral extensive infiltrates COVID PNA -Continue Remdesivir -Repeat BNP -BiPAP PRN -Currently on BiPAP. Will trial to Vapotherm. -Awake proning --Continue decadron -Continue Rocephin and azithromycin -Repeat PCT DVT/GI PPX SHAQUILLE WILSON DO Jan 17, 2020 04:59
[2020-01-17] MEDS: DEXAMETHASONE 4 MG/ML SDV (DECADRON) IV SCH (09:49)
[2020-01-17] MEDS: PANTOPRAZOLE 40 MG (PROTONIX) VIAL IV SCH (09:49)
[2020-01-17] MEDS: LACTATED RINGERS 1,000 ML IV SCH ×3 (09:50→20:50)
[2020-01-17] MEDS: REMDESIVIR INJ (NON-FORMULARY) 100 MG in NS (IVPB) 230 ML IV SCH (09:50)
[2020-01-17] MEDS: AZITHROMYCIN INJECTION 250 MG in NS (IVPB) 250 ML IV SCH (09:50)
--- NOTE | 2020-01-17 14:02 | NUR ---
"RD ASSESSMENT PMHx: unknown PMH; PT INTERACTION: Note pt is COVID+, and is a non-Cameroonian speaker per chart review. Note all information is per chart review. Note avg PO intake <25% x2d, per chart review. Note last BM was 01/15 and pt not currently on bowel regimen. Note unable to determine recent wt hx. ABNORMAL NUTRITION-RELATED LAB VALUES LOW: Ca 8.3; HIGH: Mg 2.5 Est. kcal needs: 1475 kcal | 20 kcal/kg Est. Pro needs: 59 g Pro | 0.8 g Pro/kg PES STATEMENT: Inadequate oral intake (NI-2.1) related to loss of appetite as evidenced by chart review | avg PO intake <25% x2d INTERVENTION: Continue with current diet order of Regular diet, on disposable trays (d/t COVID). Add Ensure Enlive (vary) to meals TID, for increased kcal intake. Provides 350 kcal and 13 g Pro per serving. Will continue to follow and reassess as pt needs, intake, and status change. MONITOR/EVALUATE: PO Intake; Plan of Care; Hydration Status; Weight Status; Lab Values David Tipton, MS, RD, LD"
[2020-01-17] MEDS: ENOXAPARIN 40 MG/0.4 ML (LOVENOX) SYR SC SCH (14:11)
[2020-01-17] MEDS: cefTRIAXone FOR IV USE 1,000 MG in WATER (STERILE) FOR INJECTION 10 ML IV SCH (14:11)
[2020-01-18] VITALS (18 sets, daily range): BP systolic 99–170; BP diastolic 67–93
[2020-01-18] MEDS: RT-ALBUTEROL INHALER HFA (VENTOLIN HFA) 8 GM IH SCH ×3 (02:22→10:16)
[2020-01-18 04:12] LABS: BASOPHILS % (AUTO) 0 % (0-10); EOSINOPHILS % (AUTO) 0 % (0-10); HEMATOCRIT 40 % (40-54); HEMOGLOBIN 13.2 G/DL (13.3-17.7); LYMPHOCYTES # (AUTO) 0.6 X 10^3 (1.0-4.0); LYMPHOCYTES % (AUTO) 9 % (12-44); MEAN CORPUSCULAR HEMOGLOBIN 31 PG (25-34); MEAN CORPUSCULAR HGB CONC 33 G/DL (32-36); MEAN CORPUSCULAR VOLUME 94 FL (80-99); MEAN PLATELET VOLUME 8.9 FL (7.4-10.4); MONOCYTES # (AUTO) 0.4 X 10^3 (0.0-1.0); MONOCYTES % (AUTO) 6 % (0-12); NEUTROPHILS # (AUTO) 5.3 X 10^3 (1.8-7.8); NEUTROPHILS % (AUTO) 84 % (42-75); PLATELET COUNT 508 10^3/uL (130-400); RED CELL DISTRIBUTION WIDTH 12.9 % (10.0-14.5); WHITE BLOOD COUNT 6.2 10^3/uL (4.3-11.0)
[2020-01-18 04:31] LABS: BUN/CREATININE RATIO 19; CALCIUM 8.1 MG/DL (8.5-10.1); CARBON DIOXIDE 22 MMOL/L (21-32); CHLORIDE 105 MMOL/L (98-107); CREATININE SERUM 0.73 MG/DL (0.60-1.30); GFR ESTIMATED > 60; GLUCOSE 104 MG/DL (70-105); MAGNESIUM 2.4 MG/DL (1.6-2.4); POTASSIUM 4.1 MMOL/L (3.6-5.0); SODIUM 138 MMOL/L (135-145)
--- NOTE | 2020-01-18 04:49 | Pulmonary Progress Note ---
Subjective Time Seen by a Provider: 04:43 Subjective/Events-last exam Pt is currently on BiPAP Sepsis Event Evaluation Height, Weight, BMI Height: '" Weight: lbs. oz. kg; 25.00 BMI Method: Exam Exam Vital Signs Date Time Temp Pulse Resp B/P (MAP) Pulse Ox O2 Delivery O2 Flow Rate FiO2 01/18/20 04:00 67 30 113/82 (92) 94 NIV Bilevel 30.00 01/18/20 03:00 62 23 170/86 (114) 92 NIV Bilevel 40.00 01/18/20 02:23 62 24 95 40.00 01/18/20 02:00 65 12 118/87 (97) 92 NIV Bilevel 40.00 01/18/20 01:00 61 01/18/20 01:00 71 12 122/88 (99) 96 NIV Bilevel 40.00 01/18/20 00:00 96 Vapotherm 30.00 01/18/20 00:00 66 18 112/77 (89) 96 NIV Bilevel 40.00 01/18/20 00:00 36.5 01/17/20 23:00 75 16 115/97 (103) 97 NIV Bilevel 40.00 01/17/20 22:15 NIV Bilevel 40.00 01/17/20 22:00 81 27 116/77 (90) 93 Vapotherm 30.00 60.00 01/17/20 21:46 81 33 97 40.00 01/17/20 21:00 81 18 123/86 (98) 92 Vapotherm 30.00 60.00 01/17/20 20:51 84 01/17/20 20:44 36.7 30.00 60.00 01/17/20 20:30 96 Vapotherm 30.00 01/17/20 20:00 73 105/74 (84) 99 Vapotherm 25.00 40.00 01/17/20 19:00 85 108/76 (87) 94 Vapotherm 25.00 40.00 01/17/20 18:25 90 Vapotherm 40.00 60 01/17/20 18:00 73 106/66 (79) 93 Vapotherm 25.00 40.00 01/17/20 17:00 79 104/71 (82) 93 Vapotherm 25.00 40.00 01/17/20 16:00 95 Vapotherm 40.00 01/17/20 16:00 105/69 (81) 91 Vapotherm 25.00 40.00 01/17/20 15:00 101/70 (80) 91 Vapotherm 25.00 40.00 01/17/20 14:54 94 Vapotherm 20.00 40 01/17/20 14:15 37.3 01/17/20 14:00 87 31 122/75 (91) 93 Vapotherm 25.00 40.00 01/17/20 13:00 66 34 107/73 (84) 93 Vapotherm 25.00 40.00 01/17/20 12:44 73 01/17/20 12:00 94 Vapotherm 40.00 01/17/20 12:00 62 29 115/80 (92) 94 NIV Bilevel 45.00 01/17/20 11:20 97 Vapotherm 25.00 40 01/17/20 11:00 78 14 112/75 (87) 97 NIV Bilevel 45.00 01/17/20 10:00 81 34 113/81 (92) 93 NIV Bilevel 45.00 01/17/20 09:00 77 25 107/81 (90) 97 NIV Bilevel 45.00 01/17/20 08:00 80 34 113/81 (92) 98 NIV Bilevel 45.00 01/17/20 08:00 95 NIV Bilevel 50.00 01/17/20 07:20 61 28 97 40.00 01/17/20 07:00 65 31 105/74 (84) 96 NIV Bilevel 45.00 01/17/20 06:39 65 01/17/20 06:00 67 23 110/84 (93) 96 NIV Bilevel 45.00 01/17/20 05:00 56 18 112/83 (93) 97 NIV Bilevel 45.00 I & O 01/18/20 07:00 Intake Total 750 ml Output Total 1800 ml Balance -1050 ml Height & Weight Height: '" Weight: lbs. oz. kg; 25.00 BMI Method: General Appearance: Moderate Distress HEENT: PERRL/EOMI, Pharynx Normal Neck: Full Range of Motion, Non Tender, Supple Respiratory: Chest Non Tender, Crackles, Decreased Breath Sounds, Respiratory Distress Cardiovascular: Regular Rate, Rhythm, No Edema Capillary Refill: Less Than 3 Seconds Gastrointestinal: normal bowel sounds, non tender, soft Extremity: Normal Capillary Refill Neurologic/Psychiatric: Alert, Oriented x3 Skin: Normal Color, Warm/Dry Lymphatic: No Adenopathy Results Lab Laboratory Tests 01/17/20 03:19 01/18/20 04:00 Assessment/Plan Assessment/Plan Acute respiratory failure with bilateral extensive infiltrates COVID PNA -Continue Remdesivir -Repeat BNP -BiPAP PRN -Currently on BiPAP. Will trial to Vapotherm. -Awake proning --Continue decadron -Continue Rocephin and azithromycin -Repeat PCT DVT/GI PPX SHAQUILLE WILSON DO Jan 18, 2020 04:49
[2020-01-18] MEDS ORDERED: FUROSEMIDE 40 MG/4 ML INJ (LASIX) IVP ONE (06:30)
[2020-01-18] MEDS ORDERED: KCL 20 MEQ TAB (K-DUR) PO ONE ×2 (06:30→06:40)
[2020-01-18] MEDS ORDERED: FUROSEMIDE 40 MG/4 ML INJ (LASIX) ONE (06:31)
[2020-01-18] MEDS: REMDESIVIR INJ (NON-FORMULARY) 100 MG in NS (IVPB) 230 ML IV SCH (08:02)
[2020-01-18] MEDS: AZITHROMYCIN INJECTION 250 MG in NS (IVPB) 250 ML IV SCH (08:02)
[2020-01-18] MEDS: PANTOPRAZOLE 40 MG (PROTONIX) VIAL IV SCH (08:02)
[2020-01-18] MEDS: DEXAMETHASONE 4 MG/ML SDV (DECADRON) IV SCH (08:02)
[2020-01-18 08:35] LABS: ALBUMIN 2.7 GM/DL (3.2-4.5)
[2020-01-18 08:38] LABS: TOTAL PROTEIN 5.7 GM/DL (6.4-8.2)
[2020-01-18 08:40] LABS: BILIRUBIN,TOTAL 0.4 MG/DL (0.1-1.0)
[2020-01-18 08:44] LABS: BILIRUBIN,DIRECT 0.2 MG/DL (0.0-0.3); BILIRUBIN,INDIRECT 0.2 MG/DL
--- NOTE | 2020-01-18 11:00 | NUR ---
PT ICU TRANSFER TO ROOM 432. REPORT RECEIVED FROM KIMMY SEPULVEDA PRIOR TO PT ARRIVAL. PT A/O, VSS. LANGUAGE LINE WAS USED. PT ON 4LNC, NO RESP DISTRESS NOTED AT THIS TIME. PT VERBALIZED UNDERSTANDING OF USE OF CALL LIGHT. WILL MONITOR CLOSELY.
[2020-01-18] MEDS: cefTRIAXone FOR IV USE 1,000 MG in WATER (STERILE) FOR INJECTION 10 ML IV SCH (14:48)
[2020-01-18] MEDS: ENOXAPARIN 40 MG/0.4 ML (LOVENOX) SYR SC SCH (14:48)
[2020-01-18] MEDS ORDERED: RT-ALBUTEROL INHALER HFA (VENTOLIN HFA) 8 GM IH SCH (15:00)
--- NOTE | 2020-01-18 18:18 | NUR ---
AFTER COUGHING SPELL PT OXYGEN REMAINING 92% AND BELOW ON 9L HI FLOW, RESP 36. RT NOTIFIED AND IN ROUTE TO PT ROOM DR RODRIGUEZ NOTIFIED AND GAVE ORDERS FOR VAPOTHERM. ALSO STATED MAY NEED TO TRANSFER PT TO ICU IF CONTINUES TO DECLINE. [id number] DR RODRIGUEZ NOTIFIED OF VAPOTHERM SETTINGS 15LPM @ 60% PT 02 96% HR 82
--- NOTE | 2020-01-18 18:27 | NUR ---
RT TO ROOM AT THIS TIME WITH VAPOTHERM
[2020-01-18] MEDS: RT-ALBUTEROL INHALER HFA (VENTOLIN HFA) 18 GM IH SCH ×2 (18:33→21:23)
[2020-01-18] MEDS ORDERED: RT-ALBUTEROL INHALER HFA (VENTOLIN HFA) 18 GM IH SCH (21:00)
[2020-01-19] MEDS: RT-ALBUTEROL INHALER HFA (VENTOLIN HFA) 18 GM IH SCH ×4 (02:36→21:59)
[2020-01-19 04:00] VITALS: BP 105/68
[2020-01-19 05:27] LABS: BASOPHILS % (AUTO) 0 % (0-10); EOSINOPHILS % (AUTO) 0 % (0-10); HEMATOCRIT 44 % (40-54); HEMOGLOBIN 15.1 G/DL (13.3-17.7); LYMPHOCYTES % (AUTO) 11 % (12-44); MEAN CORPUSCULAR HEMOGLOBIN 32 PG (25-34); MEAN CORPUSCULAR HGB CONC 34 G/DL (32-36); MEAN CORPUSCULAR VOLUME 93 FL (80-99); MEAN PLATELET VOLUME 8.8 FL (7.4-10.4); MONOCYTES # (AUTO) 0.7 X 10^3 (0.0-1.0); MONOCYTES % (AUTO) 7 % (0-12); NEUTROPHILS # (AUTO) 7.5 X 10^3 (1.8-7.8); NEUTROPHILS % (AUTO) 81 % (42-75); PLATELET COUNT 643 10^3/uL (130-400); RED CELL DISTRIBUTION WIDTH 12.9 % (10.0-14.5); WHITE BLOOD COUNT 9.3 10^3/uL (4.3-11.0)
[2020-01-19 05:52] LABS: ALBUMIN 3.1 GM/DL (3.2-4.5); CHLORIDE 106 MMOL/L (98-107); POTASSIUM 4.3 MMOL/L (3.6-5.0); SODIUM 138 MMOL/L (135-145)
[2020-01-19 05:53] LABS: CALCIUM 8.7 MG/DL (8.5-10.1)
[2020-01-19 05:54] LABS: GLUCOSE 90 MG/DL (70-105); TOTAL PROTEIN 6.6 GM/DL (6.4-8.2)
[2020-01-19 05:55] LABS: CARBON DIOXIDE 21 MMOL/L (21-32)
[2020-01-19 05:56] LABS: BILIRUBIN,TOTAL 0.5 MG/DL (0.1-1.0)
[2020-01-19 05:57] LABS: PHOSPHORUS 3.8 MG/DL (2.3-4.7)
[2020-01-19 05:58] LABS: ALKALINE PHOSPHATASE 83 U/L (40-136); CREATININE SERUM 0.76 MG/DL (0.60-1.30); GFR ESTIMATED > 60
[2020-01-19 05:59] LABS: BUN/CREATININE RATIO 25
[2020-01-19 06:01] LABS: ALANINE AMINOTRANSFERASE 41 U/L (0-55); MAGNESIUM 2.5 MG/DL (1.6-2.4)
[2020-01-19] MEDS: DEXAMETHASONE 4 MG/ML SDV (DECADRON) IV SCH (08:52)
--- NOTE | 2020-01-19 08:55 | NUR ---
PT O2 90% ON VAPOTHERM UPON ARRIVING TO ROOM. RESPIRATIONS IN HIGH 30'S AFTER COUGHING SPELL, OXYGEN 88% AND BELOW. THIS RN ASKED OTHER RN (RUNNER) OUTSIDE OF ROOM TO CALL RESP. THERAPY. PT GIVEN SCHEDULED ALBUTEROL INHALER.
[2020-01-19] MEDS: REMDESIVIR INJ (NON-FORMULARY) 100 MG in NS (IVPB) 230 ML IV SCH (08:58)
[2020-01-19] MEDS: AZITHROMYCIN INJECTION 250 MG in NS (IVPB) 250 ML IV SCH (08:59)
[2020-01-19 09:00] VITALS: BP 93/69
[2020-01-19] MEDS: PANTOPRAZOLE 40 MG (PROTONIX) VIAL IV SCH (09:09)
[2020-01-19] MEDS: guaiFENesin/DM (ROBITUSSIN DM) 10 ML UDC PO PRN (10:36)
--- NOTE | 2020-01-19 12:01 | Progress Note - Hospitalist ---
Subjective HPI/CC On Admission Date Seen by Provider: Jan 19, 2020 Time Seen by Provider: 09:55 Subjective/Events-last exam He reports a continued cough. His shortness of breath is about the same. He denies any fevers. He denies any nausea or vomiting. He has no other complaints or concerns. Objective Exam Vital Signs Vital Signs Date Time Temp Pulse Resp B/P (MAP) Pulse Ox O2 Delivery O2 Flow Rate FiO2 01/19/20 10:35 83 94 Vapotherm 25.00 70.00 01/19/20 09:00 36.9 28 93/69 (77) 01/19/20 08:56 70 Capillary Refill : Less Than 3 SecondsLess Than 3 Seconds General Appearance: No Apparent Distress, WD/WN Respiratory: Lungs Clear, Normal Breath Sounds, No Respiratory Distress, Other (Wearing Vapotherm) Cardiovascular: Regular Rate, Rhythm, No Edema, No Murmur Gastrointestinal: Normal Bowel Sounds, Non Tender, Soft Extremity: Normal Inspection, Non Tender, No Pedal Edema Neurologic/Psychiatric: Alert, Oriented x3, No Motor/Sensory Deficits, Normal Mood/Affect Skin: Normal Color, Warm/Dry Results/Procedures Lab Laboratory Tests 01/19/20 05:00 Patient resulted labs reviewed. Imaging: Reviewed Imaging Report Assessment/Plan Assessment and Plan Assess & Plan/Chief Complaint COVID-19 Acute respiratory failure with hypoxia Pneumonia Continue Remdesivir and Decadron for COVID Continue Rocephin for pneumonia Continue Vapotherm DVT prophylaxis: Lovenox Diagnosis/Problems Diagnosis/Problems (1) COVID-19 Status: Acute (2) Acute hypoxemic respiratory failure Status: Acute (3) PNA (pneumonia) Status: Acute Clinical Quality Measures DVT/VTE Risk/Contraindication: Risk Factor Score Per Nursin RFS Level Per Nursing on Admit: 2=Moderate ED RODRIGUEZ MD Jan 19, 2020 12:01
[2020-01-19 12:32] VITALS: BP 108/69
[2020-01-19] MEDS: ENOXAPARIN 40 MG/0.4 ML (LOVENOX) SYR SC SCH (14:38)
[2020-01-19] MEDS: cefTRIAXone FOR IV USE 1,000 MG in WATER (STERILE) FOR INJECTION 10 ML IV SCH (14:38)
[2020-01-19 17:18] VITALS: BP 114/82
[2020-01-19 20:00] VITALS: BP 112/77
[2020-01-19] MEDS: ACETAMINOPHEN 325 MG TABLET PO PRN (22:01)
[2020-01-19 23:59] VITALS: BP 112/72
[2020-01-20] MEDS: RT-ALBUTEROL INHALER HFA (VENTOLIN HFA) 18 GM IH SCH ×4 (03:15→19:39)
[2020-01-20 04:00] VITALS: BP 105/80
[2020-01-20 05:55] LABS: BASOPHILS % (AUTO) 0 % (0-10); EOSINOPHILS # (AUTO) 0.1 10^3/uL (0.0-0.3); EOSINOPHILS % (AUTO) 1 % (0-10); HEMATOCRIT 45 % (40-54); HEMOGLOBIN 15.5 G/DL (13.3-17.7); LYMPHOCYTES % (AUTO) 13 % (12-44); MEAN CORPUSCULAR HEMOGLOBIN 31 PG (25-34); MEAN CORPUSCULAR HGB CONC 34 G/DL (32-36); MEAN CORPUSCULAR VOLUME 92 FL (80-99); MEAN PLATELET VOLUME 8.6 FL (7.4-10.4); MONOCYTES # (AUTO) 0.7 X 10^3 (0.0-1.0); MONOCYTES % (AUTO) 9 % (0-12); NEUTROPHILS # (AUTO) 5.9 X 10^3 (1.8-7.8); NEUTROPHILS % (AUTO) 76 % (42-75); PLATELET COUNT 703 10^3/uL (130-400); WHITE BLOOD COUNT 7.8 10^3/uL (4.3-11.0)
[2020-01-20 06:07] LABS: CHLORIDE 105 MMOL/L (98-107); POTASSIUM 4.2 MMOL/L (3.6-5.0); SODIUM 136 MMOL/L (135-145)
[2020-01-20 06:08] LABS: CALCIUM 8.7 MG/DL (8.5-10.1)
[2020-01-20 06:10] LABS: GLUCOSE 89 MG/DL (70-105); TOTAL PROTEIN 6.4 GM/DL (6.4-8.2)
[2020-01-20 06:11] LABS: BILIRUBIN,TOTAL 0.5 MG/DL (0.1-1.0); CARBON DIOXIDE 21 MMOL/L (21-32)
[2020-01-20 06:13] LABS: ALKALINE PHOSPHATASE 86 U/L (40-136); CREATININE SERUM 0.72 MG/DL (0.60-1.30); GFR ESTIMATED > 60
[2020-01-20 06:14] LABS: BUN/CREATININE RATIO 25
[2020-01-20 06:16] LABS: ALANINE AMINOTRANSFERASE 46 U/L (0-55); MAGNESIUM 2.3 MG/DL (1.6-2.4)
[2020-01-20] MEDS: REMDESIVIR INJ (NON-FORMULARY) 100 MG in NS (IVPB) 230 ML IV SCH (08:07)
[2020-01-20] MEDS: PANTOPRAZOLE 40 MG (PROTONIX) VIAL IV SCH (08:08)
[2020-01-20] MEDS: DEXAMETHASONE 4 MG/ML SDV (DECADRON) IV SCH (08:08)
[2020-01-20 08:18] VITALS: BP 102/61
--- NOTE | 2020-01-20 11:38 | Progress Note - Hospitalist ---
Subjective HPI/CC On Admission Date Seen by Provider: Jan 20, 2020 Time Seen by Provider: 10:05 Subjective/Events-last exam he continues to have a cough which but it occurs worsens or shortness of breath. He denies any fevers. He denies any pain. He denies any nausea or vomiting. He has been eating and drinking a bit. He has no other complaints or concerns. Objective Exam Vital Signs Vital Signs Date Time Temp Pulse Resp B/P (MAP) Pulse Ox O2 Delivery O2 Flow Rate FiO2 01/20/20 09:00 97 Vapotherm 01/20/20 08:18 36.7 77 24 102/61 (75) 50.00 01/20/20 03:15 50 Capillary Refill : Less Than 3 SecondsLess Than 3 Seconds General Appearance: No Apparent Distress, WD/WN Respiratory: Lungs Clear, Normal Breath Sounds, No Respiratory Distress, Other (wearing Vapotherm) Cardiovascular: Regular Rate, Rhythm, No Edema, No Murmur Gastrointestinal: Normal Bowel Sounds, Non Tender, Soft Extremity: Normal Inspection, Non Tender, No Pedal Edema Neurologic/Psychiatric: Alert, Oriented x3, No Motor/Sensory Deficits, Normal Mood/Affect Skin: Normal Color, Warm/Dry Results/Procedures Lab Laboratory Tests 01/20/20 03:35 Patient resulted labs reviewed. Imaging: Reviewed Imaging Report Assessment/Plan Assessment and Plan Assess & Plan/Chief Complaint COVID-19 Acute respiratory failure with hypoxia Pneumonia Continue Remdesivir and Decadron for COVID Continue Rocephin for pneumonia Continue Vapotherm Repeat CT chest to evaluate for PE Recheck inflammatory markers tomorrow DVT prophylaxis: Lovenox Diagnosis/Problems Diagnosis/Problems (1) COVID-19 Status: Acute (2) Acute hypoxemic respiratory failure Status: Acute (3) PNA (pneumonia) Status: Acute Clinical Quality Measures DVT/VTE Risk/Contraindication: Risk Factor Score Per Nursin RFS Level Per Nursing on Admit: 2=Moderate ED RODRIGUEZ MD Jan 20, 2020 11:37
[2020-01-20 12:00] VITALS: BP 114/77
[2020-01-20] MEDS ORDERED: HOLD METFORMIN - RECEIVED CONTRAST 20 ML VIAL IV SCH (12:30)
[2020-01-20] MEDS ORDERED: NS 100 ML (IVPB) BAG IV ONE (12:30)
[2020-01-20] MEDS ORDERED: IOHEXOL 350 MG/ML 100 ML (OMNIPAQUE 350) VIAL IV ONE (12:30)
[2020-01-20] MEDS: ENOXAPARIN 40 MG/0.4 ML (LOVENOX) SYR SC SCH (12:58)
--- NOTE | 2020-01-20 13:38 | Diagnostic Imaging Report ---
PROCEDURE: CT angiography of the chest with contrast. TECHNIQUE: Multiple contiguous axial images were obtained through the chest after uneventful bolus administration of intravenous contrast. 3D reconstructed CTA MIP acquisitions were also performed. Auto Exposure Controls were utilized during the CT exam to meet ALARA standards for radiation dose reduction. Indication: Dyspnea and hypoxia. Comparison: 01/15/2020. Discussion: Extensive mixed interstitial and alveolar infiltrates are again noted diffusely throughout the lungs, not significantly changed. Findings again are most consistent with pneumonia. The thoracic aorta is normal in caliber and configuration. No pulmonary embolus identified. The visualized upper abdomen is unremarkable. Normal heart size. No pleural or pericardial fluid. No adenopathy. No acute osseous abnormality. Impression: 1. Residual significant bilateral pulmonary infiltrates. No pulmonary embolus identified. Dictated by: Dictated on workstation # [id number]
[2020-01-20] MEDS: cefTRIAXone FOR IV USE 1,000 MG in WATER (STERILE) FOR INJECTION 10 ML IV SCH (14:00)
--- NOTE | 2020-01-20 14:00 | NUR ---
PT HAD CTA ORDERED FROM DR RODRIGUEZ. KRISS HOLMAN, PCT AND MARK CONLEY 'HENRRY' RN, TOOK PT TO CT. RT, MARGARET MONTERROSO, SAID THAT HE COULD BE ON 10-15 L 02 WITH NON REBREATHER. PT TRANSPORTED IN W/C ON PORTABLE O2 WITH NON REBREATHER AND MASK. WHEN RESULTS CAME BACK THIS RN LET DR RODRIGUEZ KNOW THAT CTA REPORT SAID NEGATIVE FOR PE. NO NEW ORDERS PER DR RODRIGUEZ.
[2020-01-20 16:17] VITALS: BP 104/66
[2020-01-20 20:00] VITALS: BP 133/78
[2020-01-20] MEDS: ACETAMINOPHEN 325 MG TABLET PO PRN (20:21)
[2020-01-21] VITALS (7 sets, daily range): BP systolic 103–128; BP diastolic 66–78
[2020-01-21] MEDS: RT-ALBUTEROL INHALER HFA (VENTOLIN HFA) 18 GM IH SCH ×4 (02:43→21:03)
[2020-01-21 04:29] LABS: BASOPHILS % (AUTO) 0 % (0-10); EOSINOPHILS # (AUTO) 0.1 10^3/uL (0.0-0.3); EOSINOPHILS % (AUTO) 1 % (0-10); HEMATOCRIT 47 % (40-54); HEMOGLOBIN 16.2 G/DL (13.3-17.7); LYMPHOCYTES % (AUTO) 18 % (12-44); MEAN CORPUSCULAR HEMOGLOBIN 32 PG (25-34); MEAN CORPUSCULAR HGB CONC 35 G/DL (32-36); MEAN CORPUSCULAR VOLUME 91 FL (80-99); MEAN PLATELET VOLUME 8.8 FL (7.4-10.4); MONOCYTES # (AUTO) 0.7 X 10^3 (0.0-1.0); MONOCYTES % (AUTO) 12 % (0-12); NEUTROPHILS # (AUTO) 3.9 X 10^3 (1.8-7.8); NEUTROPHILS % (AUTO) 69 % (42-75); PLATELET COUNT 731 10^3/uL (130-400); RED CELL DISTRIBUTION WIDTH 12.9 % (10.0-14.5); WHITE BLOOD COUNT 5.7 10^3/uL (4.3-11.0)
[2020-01-21 04:39] LABS: ALBUMIN 3.1 GM/DL (3.2-4.5)
[2020-01-21 04:40] LABS: CHLORIDE 102 MMOL/L (98-107); POTASSIUM 4.4 MMOL/L (3.6-5.0); SODIUM 134 MMOL/L (135-145)
[2020-01-21 04:41] LABS: CALCIUM 8.8 MG/DL (8.5-10.1)
[2020-01-21 04:42] LABS: GLUCOSE 92 MG/DL (70-105); TOTAL PROTEIN 7.1 GM/DL (6.4-8.2)
[2020-01-21 04:43] LABS: CARBON DIOXIDE 20 MMOL/L (21-32)
[2020-01-21 04:44] LABS: BILIRUBIN,TOTAL 0.6 MG/DL (0.1-1.0)
[2020-01-21 04:46] LABS: ALKALINE PHOSPHATASE 89 U/L (40-136); CREATININE SERUM 0.78 MG/DL (0.60-1.30); GFR ESTIMATED > 60
[2020-01-21 04:47] LABS: BUN/CREATININE RATIO 22
[2020-01-21 04:49] LABS: ALANINE AMINOTRANSFERASE 53 U/L (0-55)
[2020-01-21] MEDS: PANTOPRAZOLE 40 MG (PROTONIX) VIAL IV SCH (07:52)
[2020-01-21] MEDS: DEXAMETHASONE 4 MG/ML SDV (DECADRON) IV SCH (07:52)
--- NOTE | 2020-01-21 13:03 | Progress Note - Hospitalist ---
Subjective HPI/CC On Admission Date Seen by Provider: Jan 21, 2020 Time Seen by Provider: 10:40 Subjective/Events-last exam He reports feeling better today. He denies any fevers. He continues to be short of breath and cough. He has many and drinking. He has no other complaints or concerns. Objective Exam Vital Signs Vital Signs Date Time Temp Pulse Resp B/P (MAP) Pulse Ox O2 Delivery O2 Flow Rate FiO2 01/21/20 08:04 Vapotherm 01/21/20 07:56 36.7 79 18 103/66 (78) 91 35.00 01/21/20 07:37 35 Capillary Refill : Less Than 3 SecondsLess Than 3 Seconds General Appearance: No Apparent Distress, WD/WN Respiratory: Lungs Clear, Normal Breath Sounds, No Respiratory Distress Cardiovascular: Regular Rate, Rhythm, No Edema, No Murmur Gastrointestinal: Normal Bowel Sounds, Non Tender, Soft Extremity: Normal Inspection, Non Tender, No Pedal Edema Neurologic/Psychiatric: Alert, No Motor/Sensory Deficits, Normal Mood/Affect; No Disoriented Skin: Normal Color, Warm/Dry Results/Procedures Lab Laboratory Tests 01/21/20 04:18 Patient resulted labs reviewed. Imaging: Reviewed Imaging Report Assessment/Plan Assessment and Plan Assess & Plan/Chief Complaint COVID-19 Acute respiratory failure with hypoxia Pneumonia Continue Decadron Completed course of Remdesivir Continue Rocephin for pneumonia Continue Vapotherm, wean as able CT with no evidence of PE Inflammatory markers stable/improving DVT prophylaxis: Lovenox Diagnosis/Problems Diagnosis/Problems (1) COVID-19 Status: Acute (2) Acute hypoxemic respiratory failure Status: Acute (3) PNA (pneumonia) Status: Acute Clinical Quality Measures DVT/VTE Risk/Contraindication: Risk Factor Score Per Nursin RFS Level Per Nursing on Admit: 2=Moderate ED RODRIGUEZ MD Jan 21, 2020 13:03
[2020-01-21] MEDS: cefTRIAXone FOR IV USE 1,000 MG in WATER (STERILE) FOR INJECTION 10 ML IV SCH (13:24)
[2020-01-21] MEDS: ENOXAPARIN 40 MG/0.4 ML (LOVENOX) SYR SC SCH (13:24)
[2020-01-21] MEDS: guaiFENesin/DM (ROBITUSSIN DM) 10 ML UDC PO PRN (21:29)
[2020-01-22] MEDS: RT-ALBUTEROL INHALER HFA (VENTOLIN HFA) 18 GM IH SCH ×4 (03:30→22:35)
[2020-01-22 04:00] VITALS: BP 100/65
[2020-01-22 05:40] LABS: BASOPHILS % (AUTO) 0 % (0-10); EOSINOPHILS # (AUTO) 0.1 10^3/uL (0.0-0.3); EOSINOPHILS % (AUTO) 1 % (0-10); HEMATOCRIT 50 % (40-54); HEMOGLOBIN 17.4 G/DL (13.3-17.7); LYMPHOCYTES # (AUTO) 1.4 X 10^3 (1.0-4.0); LYMPHOCYTES % (AUTO) 22 % (12-44); MEAN CORPUSCULAR HEMOGLOBIN 32 PG (25-34); MEAN CORPUSCULAR HGB CONC 35 G/DL (32-36); MEAN CORPUSCULAR VOLUME 91 FL (80-99); MEAN PLATELET VOLUME 8.5 FL (7.4-10.4); MONOCYTES # (AUTO) 0.8 X 10^3 (0.0-1.0); MONOCYTES % (AUTO) 13 % (0-12); NEUTROPHILS % (AUTO) 64 % (42-75); PLATELET COUNT 803 10^3/uL (130-400); RED CELL DISTRIBUTION WIDTH 13.3 % (10.0-14.5); WHITE BLOOD COUNT 6.3 10^3/uL (4.3-11.0)
[2020-01-22] MEDS: PANTOPRAZOLE 40 MG (PROTONIX) VIAL IV SCH (07:31)
[2020-01-22] MEDS: DEXAMETHASONE 4 MG/ML SDV (DECADRON) IV SCH (07:31)
[2020-01-22 08:08] VITALS: BP 107/73
[2020-01-22 12:00] VITALS: BP 102/67
[2020-01-22] MEDS: guaiFENesin/DM (ROBITUSSIN DM) 10 ML UDC PO PRN (12:34)
[2020-01-22] MEDS: cefTRIAXone FOR IV USE 1,000 MG in WATER (STERILE) FOR INJECTION 10 ML IV SCH (13:03)
[2020-01-22] MEDS: ENOXAPARIN 40 MG/0.4 ML (LOVENOX) SYR SC SCH (13:04)
[2020-01-22 14:19] VITALS: BP 102/67
--- NOTE | 2020-01-22 14:35 | Progress Note - Hospitalist ---
Subjective HPI/CC On Admission Date Seen by Provider: Jan 22, 2020 Time Seen by Provider: 14:31 Subjective/Events-last exam Pt reports doing well today. No new complaints. Some cough. Objective Exam Vital Signs Vital Signs Date Time Temp Pulse Resp B/P (MAP) Pulse Ox O2 Delivery O2 Flow Rate FiO2 01/22/20 14:19 36.2 84 95 32 01/22/20 14:17 Nasal Cannula 3.00 01/22/20 12:00 24 102/67 (79) Capillary Refill : Less Than 3 SecondsLess Than 3 Seconds General Appearance: No Apparent Distress, WD/WN Respiratory: Lungs Clear, No Respiratory Distress Cardiovascular: Regular Rate, Rhythm, No Murmur Neurologic/Psychiatric: Alert, Oriented x3 Results/Procedures Lab Laboratory Tests 01/22/20 05:24 Patient resulted labs reviewed. Imaging: Reviewed Imaging Report Assessment/Plan Assessment and Plan Assess & Plan/Chief Complaint COVID-19 Acute respiratory failure with hypoxia Pneumonia Continue Decadron Completed course of Remdesivir already Continue Rocephin for pneumonia Weaned off Vapotherm and on 3lpm currently CT with no evidence of PE Inflammatory markers stable/improving DVT prophylaxis: Lovenox Diagnosis/Problems Diagnosis/Problems (1) COVID-19 Status: Acute (2) PNA (pneumonia) Status: Acute (3) Acute hypoxemic respiratory failure Status: Acute Clinical Quality Measures DVT/VTE Risk/Contraindication: Risk Factor Score Per Nursin RFS Level Per Nursing on Admit: 2=Moderate ARIS BYERS MD Jan 22, 2020 14:35
[2020-01-22 15:13] VITALS: BP 99/65
[2020-01-22 20:00] VITALS: BP 114/75
[2020-01-23] VITALS: BP 99/68
[2020-01-23] MEDS: RT-ALBUTEROL INHALER HFA (VENTOLIN HFA) 18 GM IH SCH ×4 (03:24→20:20)
[2020-01-23 04:00] VITALS: BP 108/72
[2020-01-23 06:00] LABS: BASOPHILS % (AUTO) 0 % (0-10); EOSINOPHILS # (AUTO) 0.1 10^3/uL (0.0-0.3); EOSINOPHILS % (AUTO) 1 % (0-10); HEMATOCRIT 47 % (40-54); HEMOGLOBIN 16.1 G/DL (13.3-17.7); LYMPHOCYTES # (AUTO) 1.3 X 10^3 (1.0-4.0); LYMPHOCYTES % (AUTO) 17 % (12-44); MEAN CORPUSCULAR HEMOGLOBIN 32 PG (25-34); MEAN CORPUSCULAR HGB CONC 34 G/DL (32-36); MEAN CORPUSCULAR VOLUME 92 FL (80-99); MEAN PLATELET VOLUME 8.8 FL (7.4-10.4); MONOCYTES # (AUTO) 0.9 X 10^3 (0.0-1.0); MONOCYTES % (AUTO) 12 % (0-12); NEUTROPHILS # (AUTO) 5.3 X 10^3 (1.8-7.8); NEUTROPHILS % (AUTO) 70 % (42-75); PLATELET COUNT 742 10^3/uL (130-400); RED CELL DISTRIBUTION WIDTH 13.2 % (10.0-14.5); WHITE BLOOD COUNT 7.7 10^3/uL (4.3-11.0)
[2020-01-23] MEDS: DEXAMETHASONE 4 MG/ML SDV (DECADRON) IV SCH (07:33)
[2020-01-23] MEDS: PANTOPRAZOLE 40 MG (PROTONIX) VIAL IV SCH (07:33)
[2020-01-23 12:55] VITALS: BP 109/72
--- NOTE | 2020-01-23 13:18 | Progress Note - Hospitalist ---
Subjective HPI/CC On Admission Date Seen by Provider: Jan 23, 2020 Time Seen by Provider: 13:16 Subjective/Events-last exam Pt reports feeling better still today. Still has cough but improving. Got quite short of breath when going to the bathroom. Language line used. Objective Exam Vital Signs Vital Signs Date Time Temp Pulse Resp B/P (MAP) Pulse Ox O2 Delivery O2 Flow Rate FiO2 01/23/20 12:55 36.9 102 28 109/72 (84) 90 High Flow N/C 2.00 01/22/20 14:19 32 Capillary Refill : Less Than 3 SecondsLess Than 3 Seconds General Appearance: No Apparent Distress, WD/WN Respiratory: Lungs Clear, No Respiratory Distress Cardiovascular: Regular Rate, Rhythm, No Murmur Gastrointestinal: Normal Bowel Sounds, Non Tender, Soft Neurologic/Psychiatric: Alert, Oriented x3, Normal Mood/Affect Results/Procedures Lab Laboratory Tests 01/23/20 05:40 Patient resulted labs reviewed. Imaging: Reviewed Imaging Report Assessment/Plan Assessment and Plan Assess & Plan/Chief Complaint COVID-19 Acute respiratory failure with hypoxia Pneumonia Continue Decadron- switch to oral Completed course of Remdesivir already Continue Rocephin for pneumonia Wean oxygen as able, 3lpm currently CT with no evidence of PE Inflammatory markers stable DVT prophylaxis: Lovenox Diagnosis/Problems Diagnosis/Problems (1) COVID-19 Status: Acute (2) PNA (pneumonia) Status: Acute (3) Acute hypoxemic respiratory failure Status: Acute Clinical Quality Measures DVT/VTE Risk/Contraindication: Risk Factor Score Per Nursin RFS Level Per Nursing on Admit: 2=Moderate ARIS BYERS MD Jan 23, 2020 13:18
[2020-01-23] MEDS: cefTRIAXone FOR IV USE 1,000 MG in WATER (STERILE) FOR INJECTION 10 ML IV SCH (14:42)
[2020-01-23] MEDS: ENOXAPARIN 40 MG/0.4 ML (LOVENOX) SYR SC SCH (14:43)
[2020-01-23 18:20] VITALS: BP 110/73
[2020-01-23] MEDS: guaiFENesin/DM (ROBITUSSIN DM) 10 ML UDC PO PRN (20:20)
[2020-01-23] MEDS: ACETAMINOPHEN 325 MG TABLET PO PRN (20:21)
[2020-01-23 20:22] VITALS: BP 114/80
[2020-01-24] VITALS: BP 122/78
[2020-01-24] MEDS: RT-ALBUTEROL INHALER HFA (VENTOLIN HFA) 18 GM IH SCH ×4 (03:00→20:58)
[2020-01-24 04:00] VITALS: BP 128/78
[2020-01-24 06:30] LABS: BASOPHILS % (AUTO) 0 % (0-10); EOSINOPHILS # (AUTO) 0.1 10^3/uL (0.0-0.3); EOSINOPHILS % (AUTO) 1 % (0-10); HEMATOCRIT 46 % (40-54); HEMOGLOBIN 15.8 G/DL (13.3-17.7); LYMPHOCYTES # (AUTO) 1.3 X 10^3 (1.0-4.0); LYMPHOCYTES % (AUTO) 14 % (12-44); MEAN CORPUSCULAR HEMOGLOBIN 32 PG (25-34); MEAN CORPUSCULAR HGB CONC 35 G/DL (32-36); MEAN CORPUSCULAR VOLUME 92 FL (80-99); MEAN PLATELET VOLUME 8.7 FL (7.4-10.4); MONOCYTES # (AUTO) 1.1 X 10^3 (0.0-1.0); MONOCYTES % (AUTO) 12 % (0-12); NEUTROPHILS # (AUTO) 7.3 X 10^3 (1.8-7.8); NEUTROPHILS % (AUTO) 74 % (42-75); PLATELET COUNT 813 10^3/uL (130-400); RED CELL DISTRIBUTION WIDTH 13.4 % (10.0-14.5); WHITE BLOOD COUNT 9.8 10^3/uL (4.3-11.0)
[2020-01-24] MEDS ORDERED: PANTOPRAZOLE 40 MG (PROTONIX) TAB PO SCH (09:00)
[2020-01-24] MEDS ORDERED: DEXAMETHASONE 4 MG TAB (DECADRON) PO SCH (09:00)
[2020-01-24 09:04] VITALS: BP 115/73
--- NOTE | 2020-01-24 13:28 | Discharge Inst-Simple/Standard ---
Discharge Inst-Standard Patient Instructions/Follow Up Plan of Care/Instructions/FU: Please continue to take your medications as written. Please follow up with your primary care doctor in the next week to follow up this hospital stay. Activity as Tolerated: Yes Discharge Diet: No Restrictions Return to The Hospital For: Chest pain, shortness of breath, abdominal pain, fever, if you feel you are getting worse. ARIS BYERS MD Jan 24, 2020 13:27
--- NOTE | 2020-01-24 13:36 | Discharge Summary ---
Diagnosis/Chief Complaint Date of Admission Jan 15, 2020 at 12:06 Date of Discharge Discharge Date: Jan 24, 2020 Primary Care Discharge Diagnosis (1) COVID-19 Status: Acute (2) PNA (pneumonia) Status: Acute (3) Acute hypoxemic respiratory failure Status: Acute Discharge Summary Procedures/Consulations Dr Angel Palomino Discharge Physical Exam Allergies: Coded Allergies: No Known Drug Allergies (Unverified , 01/15/20) Vitals & I&Os Vital Signs Date Time Temp Pulse Resp B/P (MAP) Pulse Ox O2 Delivery O2 Flow Rate FiO2 01/24/20 20:30 96 High Flow N/C 2.00 01/24/20 20:00 36.6 82 20 122/78 (93) 01/22/20 14:19 32 General Appearance: No Apparent Distress, WD/WN Respiratory: Lungs Clear, No Respiratory Distress Cardiovascular: Regular Rate, Rhythm, No Murmur Neurologic/Psychiatric: Alert, Oriented x3 Hospital Course Pt is a 39yoCM who was admitted due to acute hypoxic respiratory failure due to COVID19. He was treated with remdesivir and decadron and did well. He had a high oxygen requirement but was able to be titrated down to 2-3lpm. He was tested for oxygen prior to discharge and found to have a 2lpm continuous need. He was discharged to home in stable condition. Labs (last 24 hrs) Patient resulted labs reviewed. Pending Labs Imaging: Reviewed Imaging Report Discussion & Recommendations Discharge Planning: >30 minutes discharge planning Discharge Home Medications: Active Scripts Active No Active Prescriptions or Reported Medications Instructions to patient/family Please see electronic discharge instructions given to patient. Clinical Quality Measures DVT/VTE Risk/Contraindication: Risk Factor Score Per Nursin RFS Level Per Nursing on Admit: 2=Moderate ARIS BYERS MD Jan 24, 2020 13:36
--- NOTE | 2020-01-24 13:46 | NUR ---
"RD ASSESSMENT PMHx: unknown PMH; current - COVID PT INTERACTION: Note pt still in COVID isolation. All information gathered is per chart review. Note avg PO intake 73% x4d. Note last BM was 01/22, and pt not currently on bowel regimen. Note pt has lost 9# x9d. ABNORMAL NUTRITION-RELATED LAB VALUES LOW: Na 132; alb 3.1 HIGH: AST 39 Est. kcal needs: 1700 kcal | 25 kcal/kg Est. Pro needs: 54 g Pro | 0.8 g Pro/kg PES STATEMENT: Inadequate oral intake (NI-2.1) related to loss of appetite as evidenced by chart review | avg PO intake 73% x4d INTERVENTION: Continue with current diet order of Regular diet. Continue with current supplementation order of Ensure High Protein (vary) with meals TID, for increased kcal and protein intake. Provides 160 kcal and 16 g Pro per serving. Would recommend DC supplementation when PO intake is avg 75% or more. Will continue to follow and reassess as pt needs, intake, and status change. MONITOR/EVALUATE: PO Intake; Plan of Care; Hydration Status; Weight Status; Lab Values David Tipton, MS, RD, LD"
[2020-01-24 14:45] VITALS: BP 119/78
--- NOTE | 2020-01-24 14:48 | NUR ---
Patient desat to 88% on RA. Placed on 2L at this time and O2 sat came up to 93%. Patient qualifies for 2L at this time Addendum: 01/24/20 at 1448 by CECI MONTERROSO RT Amended: Links added.
[2020-01-24] MEDS: ENOXAPARIN 40 MG/0.4 ML (LOVENOX) SYR SC SCH (15:31)
--- NOTE | 2020-01-24 15:45 | NUR ---
DISCHARGE INSTRUCTIONS AND HOME OXYGEN MACHINE AND USE GONE OVER WITH PT. LANGUAGE LINE WAS USED. PT VERBALIZED UNDERSTANDING OF INSTRUCTIONS. REPORTS HAVING NO RIDE UNTIL FAMILY GETS OFF WORK AROUND 9-9:30PM.
--- NOTE | 2020-01-24 16:40 | NUR ---
CM/SS for finalized discharge planning. Plan: The patient will discharge home with new home o2. DME: The patient is uninsured and will need financial services. Therefore, the [facility] will be used. CM/SS contacted Chuckie and made referral. The patients script, o2 sats, face sheet, and H&P. The patient is and speaks Frisian as first language. The patients primary care physician Britt used the Language line to speak with patient for address and phone number. The patient states he does not know his address and contacts a friend Chloe ([phone]). She did not know the address either but was willing to have the oxygen concentrator sent to her home until patient could find it out. Chloe's Address is [address] [place] [id number]. CM/SS contacted Chuckie to inform her of Chloe's phone number and address for delivery. She verbalized understanding and will contact them to inform them of plan/time. Chuckie states they will deliver tomorrow and assured this ss that he would have enough oxygen for tonight with the portable concentrator. CM/SS contacted Chloe to discuss questions of the patients. The patient was concerned about insurance. They specifically asked about Medicare. CM/SS informed them that the patient needs to be 65 (He is 39) years of age or have a disability. She states that the patient does not have a disability. CM/SS discussed resources such as Medicaid for food stamps. CM/SS discussed the market [facility] for reduced [place] insurance if patient is working. The patient is not currently on unemployment. Chloe verbalized understanding and will inform the patient. No further needs at this time.
[2020-01-24 20:00] VITALS: BP 122/78
[2020-01-24] MEDS: guaiFENesin/DM (ROBITUSSIN DM) 10 ML UDC PO PRN (21:53)
--- NOTE | 2020-01-24 21:59 | NUR ---
pt discharged to home with home o2 tank and belongings. denies questions re dc instructions.. po cough med given prior to dc
== END 2020-01-24 21:45 | disposition home or self-care (01) | DRG 177 ==
LOC: ER 10:29 → ICU 12:06 → ER 12:24 → 4TH 01-18 10:45
PROVIDERS: ADMIT Internal Medicine; ATTEND Internal Medicine
DX: U07.1 COVID-19 (principal); J12.89 Other viral pneumonia; J96.01 Acute respiratory failure with hypoxia; E87.1 Hypo-osmolality and hyponatremia
CPT/HCPCS: 36415; 71275; 80048; 80053; 80076; 80306; 81000; 82728; 82805; 83615; 83735; 83880; 84100; 84145; 85007; 85025; 85027; 85379; 86141; 86769; 87631; 87635; 93005; 93041; 94640; 94660; 94760; 96372